=== PATIENT | male | born 2005 | race Caucasian/White ===

== ENCOUNTER 2024-01-26 14:15 | Emergency (ER) | payer OTHER, SELFPAY ==
[2024-01-26 14:21] VITALS: BP 119/78; PULSE 120; TEMP 36.9; O2SAT 95; BMI 18.7
--- NOTE | 2024-01-26 14:30 | CT_ITS ---
The [address] [address] Patient Name: LEXIE GARCIA MRN: [id number] date: 2005 Sex: M Assigned Patient Location: ER Current Patient Location: ER Accession/Order Number: [id number] Exam Date: 01/26/2024 14:40 Report Date: 01/26/2024 15:02 At the request of: JASPER OGLESBY Procedure: CT head/brain wo con CT head/brain wo con HISTORY: Fall COMPARISON: None. TECHNIQUE: Contiguous axial images were obtained from the skull base to the vertex without intravenous contrast. Sagittal and coronal reformatted images are also submitted. One of the following dose optimization techniques was utilized in the performance of this exam: Automated exposure control; adjustment of the mA and/or kV according to the patient's size; or use of an iterative reconstruction technique. Specific details can be referenced in the facility's radiology CT exam operational policy. FINDINGS: Brain volume: Normal. Ventricles: Negative cisterna magna. Acute ischemic changes: None. Hemorrhage: None. Masses/edema: None. Velasquez-white: Negative. White matter: Normal. Vessels: Negative. Extra-axial: Negative. Calvarium/scalp: Small frontal scalp hematoma. Skull base/visualized face: Negative. Visualized sinuses/orbits: Negative. CT/CT head/brain wo con IMPRESSION: No intracranial hemorrhage. Electronically authenticated by: PRAVIN EDWARDS Date: 01/26/2024 15:02
--- NOTE | 2024-01-26 14:30 | CT_ITS ---
The [address] [address] Patient Name: LEXIE GACRIA MRN: [id number] date: 2005 Sex: M Assigned Patient Location: ER Current Patient Location: ER Accession/Order Number: [id number] Exam Date: 01/26/2024 14:40 Report Date: 01/26/2024 15:02 At the request of: JASPER OGLESBY Procedure: CT cervical spine wo con The prevertebral soft tissues are normal. The AP alignment is normal. The atlantooccipital and atlantoaxial articulations are maintained. The lateral masses and arch of C1 are intact. The dens and body of C2 are intact. The remaining vertebral bodies and posterior elements are intact without evidence of fracture. The alignment of the facet joints is normal. The disc spaces are maintained. The neural foramen are patent. The skull base and orbits are intact. The visualized brain is normal. The visualized soft tissue neck is normal. CT/CT cervical spine wo con IMPRESSION: 1. No acute cervical spine fracture. Electronically authenticated by: PRAVIN EDWARDS Date: 01/26/2024 15:02
--- NOTE | 2024-01-26 14:32 | ED.HEATRA1 ---
HPI - Head Injury General Chief complaint: Head Injury Stated complaint: HEAD INJURY Time Seen by Provider: 01/26/24 14:30 Source: patient Mode of arrival: walk-in Limitations: no limitations History of Present Illness HPI Narrative: 18 year old male presents to the ED for a head injury, neck pain. Reports a trip and fall today. He struck his head on a weight. Denies LOC. Reports dizziness, nausea. Denies vision changes. He has a laceration, hematoma to his forehead. Tetanus status is up to date. He is accompanied by family. Related Data Home Medications ?Medication ?Instructions ?Recorded ?Confirmed No Known Home Medications 01/26/24 01/26/24 Allergies Allergy/AdvReac Type Severity Reaction Status Date / Time No Known Drug Allergies Allergy Verified 01/26/24 14:24 Review of Systems ROS Constitutional Denies: fever or chills Eyes Denies: change in vision, blurry vision, blind spots, light sensitivity or eye discomfort Ears, nose, mouth, and throat Reports: neck pain Cardiovascular Denies: chest pain Respiratory Denies: shortness of breath Gastrointestinal Reports: nausea; Denies: abdominal pain or vomiting Musculoskeletal Reports: neck pain; Denies: back pain, extremity pain, extremity swelling or muscle weakness Integumentary/Breast Reports: new lesion; Denies: rash Neurological Reports: headache, dizziness and vertigo; Denies: numbness in extremities, weakness in extremities, lack of coordination, confusion, behavioral changes, slurred speech, difficulty communicating thoughts or involuntary movements [facility] Medical History (Updated 01/26/24 @ 15:16 by Candace Kern) No pertinent past medical history ?Z78.9 - Other specified health status (ICD-10) Surgical History (Updated 01/26/24 @ 14:33 by Weston Chaves) No pertinent past surgical history ?Z78.9 - Other specified health status (ICD-10) Exam Constitutional Vital Signs, click to edit/add: Last Vital Signs Temp 98.4 F 01/26/24 14:21 Pulse 82 01/26/24 15:46 Resp 16 01/26/24 15:46 BP 119/78 01/26/24 14:21 Pulse Ox 99 01/26/24 15:46 Common normals: oriented x3 General appearance: cooperative Orientation/consciousness: Yes awake HENMT Face and sinus: facial tenderness Nose: external nose normal and other (Nontender.); no epistaxis External auditory canal: EACs normal Mouth: oral and palatal mucosa normal, lip normal and tongue normal Throat: posterior oropharynx normal and uvula midline Other: 2 cm vertical laceration with surrounding hematoma to forehead. Minimal bleeding. Eye Common normals: PERRL, EOMs intact bilaterally, conjunctivae normal and no scleral icterus Neck & C-Spine Common normals: supple Cervical spine: cervical spine tenderness, paracervical muscle tenderness and collar present Chest Common normals: palpation of chest normal Chest: symmetrical chest wall rise Respiratory Common normals: normal respiratory effort and no use of accessory muscles Effort & inspection: able to speak in complete sentences Cardio Common normals: regular rhythm Rate: tachycardic GI Common normals: soft to palpation and non-tender Back & Pelvis Thoracic spine/upper back: normal to inspection; no thoracic spinal tenderness and no paraspinal muscle tenderness Lumbar spine/lower back: normal to inspection; no lumbar spinal tenderness and no paraspinal muscle tenderness Neuro Common normals: oriented x3, CN's II-XII intact bilaterally, moves all extremities, no focal motor deficits and no sensory deficits noted Sensorium/orientation: awake Speech: speech normal Gait (neuro): normal gait Motor exam: strength 5/5 throughout Psych Mood and affect: tearful Course Vital Signs Vital signs: Vital Signs Temperature 98.4 F 01/26/24 14:21 Pulse Rate 120 H 01/26/24 14:21 Respiratory Rate 20 01/26/24 14:21 Blood Pressure 119/78 01/26/24 14:21 Pulse Oximetry 95 01/26/24 14:21 Temperature 98.4 F 01/26/24 14:21 Pulse Rate 82 01/26/24 15:46 Respiratory Rate 16 01/26/24 15:46 Blood Pressure 119/78 01/26/24 14:21 Pulse Oximetry 99 01/26/24 15:46 MDM - Head Injury MDM Narrative Medical decision making narrative: CT head and cervical spine were negative for acute findings. His wound was cleansed. He reported his tetanus status was up to date. He initially declined medication for his discomfort here; he later requested Tylenol. Sutures were placed utilizing sterile procedure. The area was anesthetized with Lidocaine 1% without epinephrine. His wound was irrigated with NS. Four simple interrupted sutures were placed using 5-0 Nylon suture. He tolerated the procedure well. Follow up with pcp for a recheck, further evaluation and treatment. Return precautions were discussed. Suture removal in 7 days. Differential Diagnosis Differential diagnosis: Likely other (Head injury, cervical strain, CS fracture, laceration, hematoma) Medical Records Attestation: I reviewed the patient's medical records. Imaging Data CT scan - head: Attestation: I have reviewed the pertinent imaging results. Radiologist's impression: ITS Impressions Cervical Spine CT 01/26/24 14:30 IMPRESSION: 1. No acute cervical spine fracture. Electronically authenticated by: PRAVIN EDWARDS Date: 01/26/2024 15:[address] 01/26/24 14:30 IMPRESSION: No intracranial hemorrhage. Electronically authenticated by: PRAVIN EDWARDS Date: 01/26/2024 15:02 Discharge Plan Discharge Stand Alone Forms: Portal Instructions Chief Complaint: Head Injury Clinical Impression: Traumatic hematoma of forehead, Cervical strain, Head injury, Forehead laceration Patient Disposition: Home, Self-Care Time of Disposition Decision: 15:42 Condition: Good Mode of Transportation: Private Vehicle Prescriptions / Home Meds: No Action No Known Home Medications Print Language: Turkish Instructions: Cervical Strain (ED), Head Injury (ED), Facial Contusion (ED) Additional Instructions: Sutures should be removed in 7 days. Keep the wound clean and dry. Watch for signs of infection: redness, purulent drainage, increased warmth. Return to the ER for new or worsening symptoms. Referrals: Physician,Non-Staff, MD [Primary Care Provider] - 1 week Discharge Date/Time: 01/26/24 15:58
[2024-01-26] MEDS: LIDOCAINE HCL 1% 100 MG/10 ML MDV INJ (15:24)
[2024-01-26] MEDS: BACITRACIN 0.9 GM PACKET 1 PACKET TOPICAL (15:25)
[2024-01-26 15:46] VITALS: PULSE 82; O2SAT 99
[2024-01-26] MEDS: ACETAMINOPHEN 500 MG TABLET 1000 MG PO (15:51)
== END 2024-01-26 15:58 | disposition home or self-care (01) ==
PROVIDERS: Emergency Provider Emergency Medicine
DX: S16.1XXA Strain of muscle, fascia and tendon at neck level, initial encounter (principal); S00.83XA Contusion of other part of head, initial encounter; S01.81XA Laceration without foreign body of other part of head, initial encounter; S09.90XA Unspecified injury of head, initial encounter
CPT/HCPCS: 12011; 70450; 72125; 99284

== ENCOUNTER 2024-02-08 18:00 | Emergency (ER) | payer OTHER, SELFPAY ==
[2024-02-08 18:04] VITALS: BP 144/70; PULSE 96; TEMP 37.1; O2SAT 97; BMI 17.6
--- NOTE | 2024-02-08 18:27 | XR_ITS ---
The [address] [address] Patient Name: LEXIE GARCIA MRN: [id number] date: 2005 Sex: M Assigned Patient Location: ER Current Patient Location: ER Accession/Order Number: [id number] Exam Date: 02/08/2024 18:45 Report Date: 02/08/2024 19:20 At the request of: SHARITA PARRA Procedure: XR ribs LT min 3V w CXR1V EXAMINATION: XR ribs LT min 3V w CXR1V 02/08/2024 4:18 PM PDT HISTORY: pain COMPARISONS: None. FINDINGS: Lines and tubes: None. Heart and mediastinum: The heart and the mediastinum are normal for technique. Lungs and pleura: The lungs are clear. There is no evidence of pneumonia or pulmonary edema. There is no pleural effusion or pneumothorax. Bones: No acute osseous abnormality. LEFT RIBS: No displaced rib fracture. XR/XR ribs LT min 3V w CXR1V IMPRESSION: 1. No acute cardiopulmonary disease. 2. No displaced rib fracture on the left. Electronically authenticated by: DIMITRI ODOM Date: 02/08/2024 19:20
--- NOTE | 2024-02-08 19:31 | ED.GENADUL1 ---
HPI HPI - General Adult General Chief complaint: Chest Pain Stated complaint: RIB INJURY Time Seen by Provider: 02/08/24 18:20 Source: patient Mode of arrival: Wheelchair Limitations: no limitations History of Present Illness HPI narrative: Patient is a 18-year-old male who is presenting to the Emergency Room today with chief complaint of left lateral rib injury. Patient's brother is at bedside. Patient will not tell me the mechanism of injury that occurred 7 or 8 days ago, patient stated that he did not want to tell me or tell me his mechanism of injury for unknown reason to myself. Patient denies any type of history that I ask him to the left side of his ribs and what occurred a week ago, patient states it just got hurt and I cannot tell you Patient states that he safe, and denies any type of sexual, physical, or mental abuse and that he is safe at home. 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 Patient stated he was lifting multiple tires at home today, felt like he reinjured the left side of his ribs because they were getting a little better from an injury last week and he came in concerned of rib fracture. Patient has no headache. No headache, neck pain, no chest pain or shortness of breath, patient does have left lateral and lower left anterior tenderness to the ribs, no ecchymosis, no bruising, no abdominal pain, nausea, vomiiting, or any other acute complaints. . All systems are negative except as noted/marked. All systems reviewed and otherwise negative. . Nurses note and vital signs reviewed and patient is not hypoxic. General: The patient appears well and in no apparent distress. Patient is resting comfortably on cart. Patient is not toxic, lethargic, or listless Skin: Warm, dry, no pallor noted. There is no rash noted. No petechiae, purpura. Head: Normocephalic, atraumatic Eye: Normal conjunctiva, no drainage, EOMI. PERRL Ears, Nose, Mouth, and Throat: oral mucosa is moist. Nares patent. Mouth without vesicles. Cardiovascular: Regular Rate and Rhythm, no murmur, gallop, rub, Patient has mild to moderate left lower anterior rib pain over ribs approximately 8?10, mild left lower lateral chest wall pain over ribs approximately 8-10, no posterior left tenderness to palpation to posterior chest wall. Patient has no right-sided anterior, lateral, posterior chest wall pain. Respiratory: Patient is in no distress, no accessory muscle use, lungs are clear to auscultation, no wheezing, rales or rhonchi Back: non-tender, no CVA tenderness bilaterally to percussion. No CT LS midline pain GI: soft, no tenderness to palpation, no masses appreciated. No rebound, guarding, or rigidity noted. No flank pain bilateral, No distention Musculoskeletal: Patient has full range of motion of all of the extremities, no motor, sensory, or focal neurological deficits Neurological: A&O x3, normal speech Psychiatric: Cooperative Related Data Home Medications ?Medication ?Instructions ?Recorded ?Confirmed No Known Home Medications 01/26/24 01/26/24 Allergies Allergy/AdvReac Type Severity Reaction Status Date / Time No Known Drug Allergies Allergy Verified 01/26/24 14:24 Opioid HPI Opioid Management Most Recent Opioid Data: Last Pain Scale 9 02/08/24 18:30 PFSH PFSH Medical History (Updated 02/08/24 @ 19:31 by Mg Gunn MD) No pertinent past medical history ?Z78.9 - Other specified health status (ICD-10) Surgical History (Updated 01/26/24 @ 14:33 by Weston Chaves) No pertinent past surgical history ?Z78.9 - Other specified health status (ICD-10) Exam Constitutional Vital Signs, click to edit/add: Last Vital Signs Temp 98.7 F 02/08/24 18:04 Pulse 96 H 02/08/24 18:04 Resp 16 02/08/24 18:04 BP 144/70 H 02/08/24 18:04 Pulse Ox 97 02/08/24 18:04 O2 Del Method Room Air 02/08/24 18:04 Course Vital Signs Vital signs: Vital Signs Temperature 98.7 F 02/08/24 18:04 Pulse Rate 96 H 02/08/24 18:04 Respiratory Rate 16 02/08/24 18:04 Blood Pressure 144/70 H 02/08/24 18:04 Pulse Oximetry 97 02/08/24 18:04 Oxygen Delivery Method Room Air 02/08/24 18:04 Temperature 98.7 F 02/08/24 18:04 Pulse Rate 96 H 02/08/24 18:04 Respiratory Rate 16 02/08/24 18:04 Blood Pressure 144/70 H 02/08/24 18:04 Pulse Oximetry 97 02/08/24 18:04 Oxygen Delivery Method Room Air 02/08/24 18:04 Medical Decision Making MDM Narrative Medical decision making narrative: Patient's ribs and chest x-ray show no acute fracture, no pneumothorax, no Pulmonary ccontusion, no other acute abnormality. Patient had ice applied Patient was educated on alternating Tylenol and anti-inflammatories. Patient did not want to give or tell me the mechanism of injury last week for unknown reason. Patient is safe, patient denies any type of abuse. Patient understands that the ribs or chest wall can her for another 2 or 3 weeks. Patient does not need a work note. No questions at discharge Lab Data Lab results reviewed: Yes I reviewed the patient's lab results Imaging Data Chest x-ray: Radiologist's impression: ITS Impressions Ribs X-Ray 02/08/24 18:27 IMPRESSION: 1. No acute cardiopulmonary disease. 2. No displaced rib fracture on the left. Electronically authenticated by: DIMITRI ODOM Date: 02/08/2024 19:20 Discharge Plan Discharge Stand Alone Forms: Portal Instructions Chief Complaint: Chest Pain Clinical Impression: Rib injury, Chest wall pain, Costochondral chest pain, Bruised ribs Patient Disposition: Home, Self-Care Time of Disposition Decision: 19:29 Condition: Fair Prescriptions / Home Meds: No Action No Known Home Medications Print Language: Citizen Of [place] Instructions: Costochondritis (ED), Chest Wall Pain (ED), Rib Contusion (ED) Additional Instructions: Alternate Tylenol and either Motrin, Advil, ibuprofen every 4 hours to help with pain. Ice 20 minutes on, 20 minutes off. Do not use heat. Pain could her for the next 2-3 weeks, follow-up and establish PCP. Referrals: ALESSIA LOPEZ [Primary Care Provider] - 1 week
== END 2024-02-08 19:39 | disposition home or self-care (01) ==
PROVIDERS: Emergency Provider Emergency Medicine; PCP Pediatrics
DX: R07.89 Other chest pain (principal); S20.212A Contusion of left front wall of thorax, initial encounter; S29.9XXA Unspecified injury of thorax, initial encounter; R07.1 Chest pain on breathing; X58.XXXA Exposure to other specified factors, initial encounter
CPT/HCPCS: 71101; 99283